=== PATIENT | male | born 1965 | race Caucasian/White ===

== ENCOUNTER 2020-01-28 08:12 | Inpatient (IN) | payer BC ==
[2020-01-28] MEDS ORDERED: ASPIRIN 81 MG PO STA (08:26)
[2020-01-28] MEDS ORDERED: SODIUM CHLORIDE 0.9% 1,000 ML IV STA (08:26)
[2020-01-28] MEDS ORDERED: ATORVASTATIN 80 MG TAB PO STA (08:27)
[2020-01-28] MEDS: NITROGLYCERIN SL TABS 0.4 MG TAB SUBLINGUAL STA ×3 (08:28→08:39)
--- NOTE | 2020-01-28 08:34 | ED ---
General Adult HPI - General Chief complaint: Chest Pain Stated complaint: chest pain Time Seen by Provider: 01/28/20 08:19 Source: patient, RN notes reviewed, old records reviewed Mode of arrival: ambulatory Limitations: no limitations - History of Present Illness Initial comments: This a 54-year-old male who presents emergency department with past medical history significant for smoking. Patient denies any history of diabetes hypertension high cholesterol. Patient denies any family history of heart problems. Patient states this morning he woke up at about 7:00 he started experiencing chest discomfort. Patient states it did radiate to his back. Patient denied any shortness of breath to me. Patient's any nausea or vomiting. Patient any recent history of fever chills or cough. Patient denies any lightheadedness dizziness or near syncopal episode. Patient states the pain is been unchanged since that time. Patient did not take any medication. Patient denies any previous history of any heart problems. Patient denies any previous history of similar. Patient denies any swelling to the legs or calf tenderness. Patient denies any abdominal pain. - Related Data Home Medications Medication Instructions Recorded Confirmed [id number] 2 tab PO Q4HR PRN 01/28/20 01/28/20 [Excedrin] Allergies Allergy/AdvReac Type Severity Reaction Status Date / Time codeine Allergy Nausea & Verified 01/28/20 08:31 Vomiting Review of Systems ROS Statement: Those systems with pertinent positive or pertinent negative responses have been documented in the HPI. ROS Other: All systems not noted in ROS Statement are negative. Past Medical History Past Medical History: No Reported History Past Surgical History: No Surgical Hx Reported Past Psychological History: No Psychological Hx Reported Smoking Status: Current every day smoker Past Alcohol Use History: None Reported Past Drug Use History: None Reported General Exam - General Exam Comments Initial Comments: GENERAL: Patient is well-developed and well-nourished. Patient is nontoxic and well- hydrated and is in mild distress. ENT: Neck is soft and supple. No significant lymphadenopathy is noted. Oropharynx is clear. Moist mucous membranes. Neck has full range of motion without eliciting any pain. EYES: The sclera were anicteric and conjunctiva were pink and moist. Extraocular m ovements were intact and pupils were equal round and reactive to light. Eyelids were unremarkable. PULMONARY: Unlabored respirations. Good breath sounds bilaterally. No audible rales rhonchi or wheezing was noted. CARDIOVASCULAR: There is a regular rate and rhythm without any murmurs gallops or rubs. ABDOMEN: Soft and nontender with normal bowel sounds. SKIN: Skin is clear with no lesions or rashes and otherwise unremarkable. NEUROLOGIC: Patient is alert and oriented x3. Cranial nerves II through XII are grossly intact. Motor and sensory are also intact. Normal speech, volume and content. Symmetrical smile. MUSCULOSKELETAL: Normal extremities with adequate strength and full range of motion. No lower extremity swelling or edema. No calf tenderness. LYMPHATICS: No significant lymphadenopathy is noted PSYCHIATRIC: Normal psychiatric evaluation. Limitations: no limitations Course Vital Signs 01/28/20 01/28/20 08:15 08:26 Temperature 97.8 F Pulse Rate 56 L 65 Respiratory 18 18 Rate Blood Pressure 164/95 156/108 O2 Sat by Pulse 98 Oximetry Medical Decision Making - Medical Decision Making EKG shows normal sinus rhythm at 60 bpm NM interval 144 QRS is 108 QT interval 444 QTC is [address] segment elevation in the inferior leads and significant reciprocal changes in precordial leads V2 through 5. After the first nitroglycerin patient was feeling some relief so second EKG was done shows normal sinus rhythm at 65 bpm NM interval 150 QRS 108 QT interval 440 QTC is 457. Patient's EKG shows ST segment elevation inferior leads as well as reciprocal changes again in leads V2 through the 6. Critical Care Time Critical Care Time: Yes Total Critical Care Time: 35 Disposition Clinical Impression: ST elevation myocardial infarction (STEMI) Disposition: ADMITTED IP TO THIS HOSP Referrals: None,Stated [Primary Care Provider] - 1-2 days Time of Disposition: 08:34
[2020-01-28] MEDS ORDERED: HEPARIN SODIUM,PORCINE 5,000 UNIT/ML 1 ML VIAL IV STA (08:37)
--- NOTE | 2020-01-28 08:45 | XR ---
EXAMINATION TYPE: XR chest 1V portable DATE OF EXAM: 01/28/2020 COMPARISON: NONE HISTORY: Chest pain. TECHNIQUE: Single AP portable frontal upright view of the chest is obtained. FINDINGS: There is chronic parenchymal change without suspicious focal air space opacity, pleural ef fusion, or pneumothorax seen. The cardiac silhouette size is upper limits of normal. The osseous s tructures are intact. Overlying EKG leads noted. IMPRESSION: No acute process.
[2020-01-28 08:54] LABS: Basophils # (A) 0.1 k/uL (0-0.2); Basophils % (A) 1 %; Eosinophils # (A) 0.5 k/uL (0-0.7); Eosinophils % (A) 3 %; HCT 50.7 % (39.0-53.0); HGB 16.5 gm/dL (13.0-17.5); Lymphocytes # (A) 5.5 k/uL (1.0-4.8); Lymphocytes % (A) 40 %; MCH 32.4 pg (25.0-35.0); MCHC 32.5 g/dL (31.0-37.0); MCV 99.7 fL (80.0-100.0); Mean Platelet Volume 7.3; Monocytes # (A) 0.9 k/uL (0-1.0); Monocytes % (A) 7 %; Neutrophils # (A) 6.3 k/uL (1.3-7.7); Neutrophils % (A) 46 %; Platelet Count 296 k/uL (150-450); RBC 5.09 m/uL (4.30-5.90); RDW 13.1 % (11.5-15.5); WBC 13.6 k/uL (3.8-10.6)
[2020-01-28 08:56] LABS: ALT 22 U/L (4-49); AST 34 U/L (17-59); African American GFR (CKD) >90 (>60 ml/min/1.73 sqM); Albumin 4.7 g/dL (3.5-5.0); Alkaline Phosphatase 108 U/L (38-126); Anion Gap 10 mmol/L; Blood Urea Nitrogen 18 mg/dL (9-20); Calcium 9.5 mg/dL (8.4-10.2); Carbon Dioxide 24 mmol/L (22-30); Chloride 105 mmol/L (98-107); Glucose 152 mg/dL (74-99); Non-African American GFR(CKD) >90 (>60 ml/min/1.73 sqM); Potassium 4.3 mmol/L (3.5-5.1); Sodium 139 mmol/L (137-145); Total Bilirubin 0.6 mg/dL (0.2-1.3); Total Protein 7.7 g/dL (6.3-8.2)
[2020-01-28 08:57] LABS: INR 0.9 (<1.2); Partial Thromboplastin Time 22.1 sec (22.0-30.0); Prothrombin Time 9.9 sec (9.0-12.0)
[2020-01-28 09:02] LABS: Reactive Lymphocytes Present
[2020-01-28] MEDS ORDERED: LIDOCAINE 1% INJ 10MG/ML (20 ML MDV) ONE (09:04)
--- NOTE | 2020-01-28 09:26 | P.CRDCN ---
History of Present Illness History of present illness: This is Dr. Bal dictating a consult on this patient The patient was interviewed and examined IMPRESSION / ASSESSMENT: Chest discomfort the study 7:00 this morning and associated with T-wave inversions in the anterior precordial leads Acute coronary syndrome History of smoking 1 episode of chest discomfort for several hours, one week back PLAN: IV heparin antiplatelet therapy statins beta blockers and proceed to cardio catheterization Discussed with Dr. Priest 2-D echo thereafter Maximal medical treatment for COPD thereafter Smoking cessation Lipid panel HPI Patient got this morning with severe discomfort in the chest that went up into the interscapular area and the shoulders. No shortness of breath no dizziness lightheadedness no palpitations He had similar episode about a week back and the pain lasted for several hours ROS: No fever chills or rigors, no cough, phlegm or expectoration, no nausea, vomiting or diarrhea, no hematuria, dysuria, no musculoskeletal complaints, no strokes or seizures, no skin lesions. EXAMINATION: 122/82 mmHg pulse rate in the 60s no respiratory distress No JVD No lower extremity edema Breath sounds are clear no rhonchi no crackles Normal S1 normal S2 no murmurs no gallops no rub REVIEW OF LABS, ECG & MEDICAL DATA White count 13,000 hemoglobin 16.5 and at lites normal First troponin 0.14 to GFR normal Patient denies diabetes type 2, hypertension Family history of CAD Past Medical History Past Medical History: No Reported History Past Surgical History: No Surgical Hx Reported Past Psychological History: No Psychological Hx Reported Smoking Status: Current every day smoker Past Alcohol Use History: None Reported Past Drug Use History: None Reported Medications and Allergies Home Medications Medication Instructions Recorded Confirmed Type [id number] [id number] 2 tab PO Q4HR PRN 01/28/20 01/28/20 History [Excedrin] Allergies Allergy/AdvReac Type Severity Reaction Status Date / Time codeine Allergy Nausea & Verified 01/28/20 08:31 Vomiting Physical Exam Vitals: Vital Signs Temp Pulse Resp BP Pulse Ox 01/28/20 08:55 60 18 122/82 94 L 01/28/20 08:52 59 L 18 122/82 94 L 01/28/20 08:46 63 18 127/85 94 L 01/28/20 08:42 64 18 134/91 94 L 01/28/20 08:35 64 18 129/92 92 L 01/28/20 08:26 65 18 156/108 01/28/20 08:15 97.8 F 56 L 18 164/95 98 Intake and Output 01/27/20 01/28/20 01/28/20 22:59 06:59 14:59 Other: Weight 90.718 kg Results 01/28/20 08:25 01/28/20 08:25 Cardiac Enzymes 01/28/20 01/28/20 Range/Units 08:25 08:25 AST 34 (17-59) U/L Troponin I 0.142 H* (0.000-0.034) ng/mL Coagulation 01/28/20 Range/Units 08:25 PT 9.9 (9.0-12.0) sec APTT 22.1 (22.0-30.0) sec CBC 01/28/20 Range/Units 08:25 WBC 13.6 H (3.8-10.6) k/uL RBC 5.09 (4.30-5.90) m/uL Hgb 16.5 (13.0-17.5) gm/dL Hct 50.7 (39.0-53.0) % Plt Count 296 (150-450) k/uL Comprehensive Metabolic Panel 01/28/20 Range/Units 08:25 Sodium 139 (137-145) mmol/L Potassium 4.3 (3.5-5.1) mmol/L Chloride 105 (98-107) mmol/L Carbon Dioxide 24 (22-30) mmol/L BUN 18 (9-20) mg/dL Creatinine 0.85 (0.66-1.25) mg/dL Glucose 152 H (74-99) mg/dL Calcium 9.5 (8.4-10.2) mg/dL AST 34 (17-59) U/L ALT 22 (4-49) U/L Alkaline Phosphatase 108 (38-126) U/L Total Protein 7.7 (6.3-8.2) g/dL Albumin 4.7 (3.5-5.0) g/dL Intake and Output 01/27/20 01/28/20 01/28/20 22:59 06:59 14:59 Other: Weight 90.718 kg Patient Weight 01/29/20 05:59 Weight 90.718 kg 01/28/20 08:25 01/28/20 08:25
[2020-01-28] MEDS ORDERED: LIDOCAINE 1% INJ 10MG/ML (20 ML MDV) SQ ONE (09:37)
[2020-01-28] MEDS ORDERED: HYDROmorphone 0.5 MG/0.5 ML SYRINGE IVP ONE ×2 (09:37→09:52)
[2020-01-28] MEDS ORDERED: IV FLUID CONTINUATION 1,000 ML IV ONE (09:39)
[2020-01-28] MEDS ORDERED: HEPARIN SODIUM 1,000 UN/ML (10ML VL) ONE (09:44)
[2020-01-28] MEDS ORDERED: TIROFIBAN 12.5MG-250ML NS 250 ML IV ONE (09:47)
[2020-01-28] MEDS ORDERED: TIROFIBAN BOLUS 12.5MG/250 ML BAG IV ONE (09:47)
[2020-01-28] MEDS ORDERED: HEPARIN SODIUM 1,000 UN/ML (10ML VL) IV ONE ×4 (09:47→10:30)
[2020-01-28] MEDS ORDERED: niCARdipine Syringe (1,000 mcg/10 mL) INTRACORON ONE (09:52)
[2020-01-28] MEDS ORDERED: IOPAMIDOL-370 125ML BTL INJ ONE (09:59)
[2020-01-28] MEDS ORDERED: IOPAMIDOL-370 50ML BTL INJ ONE (10:14)
[2020-01-28] MEDS ORDERED: NITROGLYCERIN 1000MCG/10ML SYRINGE INTRACORON ONE (10:27)
[2020-01-28] MEDS ORDERED: CLOPIDOGREL 75 MG TAB PO ONE (10:31)
[2020-01-28] MEDS ORDERED: IOPAMIDOL-370 100ML BTL INJ ONE (10:32)
[2020-01-28] MEDS ORDERED: CLOPIDOGREL 75 MG TAB ONE (10:35)
[2020-01-28] MEDS ORDERED: ZOLPIDEM 5 MG TAB PO PRN (10:42)
[2020-01-28] MEDS ORDERED: NITROGLYCERIN SL TABS 0.4 MG TAB SUBLINGUAL PRN (10:42)
[2020-01-28] MEDS ORDERED: RX INFO: IV CONTRAST WAS GIVEN 1 EACH MISC MISCELLANE PRN (10:42)
[2020-01-28] MEDS ORDERED: ATROPINE SULFATE 0.1 MG/ML 10ML SYRINGE IV PRN (10:42)
[2020-01-28] MEDS ORDERED: TIROFIBAN 12.5MG-250ML NS 250 ML IV SCH (11:00)
[2020-01-28 11:12] LABS: Cholesterol 240 mg/dL (<200); HDL Cholesterol 36 mg/dL (40-60); LDL Cholesterol,Calculated 164 mg/dL (0-99); Triglycerides 201 mg/dL (<150)
[2020-01-28 11:18] LABS: Glucose,Whole Blood 114 mg/dL (75-99)
[2020-01-28] MEDS: SODIUM CHLORIDE 0.9% 1,000 ML IV SCH (11:18)
[2020-01-28] MEDS: MAG HYDROX/AL HYDROX/SIMETH 30 ML CUP PO PRN ×2 (11:22→21:37)
[2020-01-28] MEDS ORDERED: ONDANSETRON 4 MG/2 ML VIAL IVP PRN (12:11)
[2020-01-28] MEDS ORDERED: ACETAMINOPHEN TAB 325 MG TAB PO PRN ×2 (12:11→21:30)
--- NOTE | 2020-01-28 12:19 | P.HPIM ---
History of Present Illness H&P Date: 01/28/20 Chief Complaint: chest pain Patient is a 54-year-old male with a history of tobacco abuse who presented to the emergency department for complaints of chest pain. In the ER EKG was obtained which revealed ST segment elevation in leads 23 and aVF as well as reciprocal depression in anterior lateral leads. Code STEMI was activated. He was taken to the laborer operator and had a drug-eluting stent placed to the circumflex and RCA. He was started on aspirin, Plavix, Lopressor, Cozaar, and Lipitor. He was admitted to the ICU for close monitoring. Initial troponin 0.142, TC 201, LDL 164. Patient seen and examined at bedside. He will morning with pain between his shoulder blades and over the next hour moved his anterior chest. It was associated with cold sweats Some nausea. No numbness or tingling down his arm up to his jaw, no shortness of breath, no lightheadedness or dizziness, no palpitations. He has not recently started or stopped any medications. He does take zinc, B12, and potassium intermittently at home. He does not follow with family doctor in a regular basis. He has not had any recent cough, cold, fever, flu. He works construction. His grandfather had a heart attack in his 50s. Review of Systems Pertinent positives and negatives as discussed in HPI, a complete review of systems was performed and all other systems are negative. Past Medical History Additional Past Medical History / Comment(s): Nephrolithiasis Additional Past Surgical History / Comment(s): Tooth extraction Past Psychological History: No Psychological Hx Reported Smoking Status: Current every day smoker (One pack per day for 30 years) Past Alcohol Use History: None Reported Past Drug Use History: None Reported Additional History: Lives with his and works in construction. - Past Family History grandfather Family Medical History: Coronary Artery Disease (CAD), Myocardial Infarction ([place]) Medications and Allergies Home Medications Medication Instructions Recorded Confirmed Type [id number] 2 tab PO Q4HR PRN 01/28/20 01/28/20 History [Excedrin] Allergies Allergy/AdvReac Type Severity Reaction Status Date / Time codeine Allergy Nausea & Verified 01/28/20 08:31 Vomiting Physical Exam Osteopathic Statement: *. No significant issues noted on an osteopathic structural exam other than those noted in the History and Physical/Consult. Vitals: Vital Signs Temp Pulse Resp BP Pulse Ox 01/28/20 08:55 60 18 122/82 94 L 01/28/20 08:52 59 L 18 122/82 94 L 01/28/20 08:46 63 18 127/85 94 L 01/28/20 08:42 64 18 134/91 94 L 01/28/20 08:35 64 18 129/92 92 L 01/28/20 08:26 65 18 156/108 01/28/20 08:15 97.8 F 56 L 18 164/95 98 Intake and Output 01/27/20 01/28/20 01/28/20 22:59 06:59 14:59 Intake Total 686 Balance 686 Intake: IV 686 Other: Weight 90.718 kg Results CBC & Chem 7: 01/28/20 08:25 01/28/20 08:25 Labs: Abnormal Lab Results - Last 24 Hours (Table) 01/28/20 01/28/20 01/28/20 Range/Units 08:25 08:25 08:25 WBC 13.6 H (3.8-10.6) k/uL Lymphocytes # 5.5 H (1.0-4.8) k/uL Glucose 152 H (74-99) mg/dL POC Glucose (mg/dL) (75-99) mg/dL Troponin I 0.142 H* (0.000-0.034) ng/mL Triglycerides (<150) mg/dL Cholesterol (<200) mg/dL LDL Cholesterol, Calc (0-99) mg/dL HDL Cholesterol (40-60) mg/dL 01/28/20 01/28/20 Range/Units 08:25 11:17 WBC (3.8-10.6) k/uL Lymphocytes # (1.0-4.8) k/uL Glucose (74-99) mg/dL POC Glucose (mg/dL) 114 H (75-99) mg/dL Troponin I (0.000-0.034) ng/mL Triglycerides 201 H (<150) mg/dL Cholesterol 240 H (<200) mg/dL LDL Cholesterol, Calc 164 H (0-99) mg/dL HDL Cholesterol 36 L (40-60) mg/dL Thrombosis Risk Factor Assmnt - DVT/VTE Prophylaxis DVT/VTE Prophylaxis: Pharmacologic Prophylaxis ordered Assessment and Plan Assessment: ST segment elevated myocardial infarction -Status post stent to circumflex and RCA -Aspirin, Plavix, Lipitor, metoprolol, Cozaar -Await echo -Telemetry -Cardiology recommendations Dyslipidemia -Statin Leukocytosis -Suspect reactive -Chest x-ray negative -No additional signs or symptoms of infection Tobacco abuse -Cessation -Nicotine replacement The patient is admitted with an anticipated greater than 2 midnight stay for evaluation of an ST segment elevated myocardial infarction. Surrogate decision-maker: DVT prophylaxis: Heparin Discussed with: nursing, ED physician Anticipated discharge date: 2-[address]: home A total of 50 minutes was spent on the care of this complex patient more than 50% of the time was spent in counseling and care coordination.
--- NOTE | 2020-01-28 13:40 | CC ---
CARDIAC CATHETERIZATION REPORT CARDIAC CATHETERIZATION AND PTCA REPORT: DATE OF SERVICE: 01/28/2020. PROCEDURE PERFORMED: 1. Left heart catheterization and coronary angiography. 2. PTCA and stenting of the mid circumflex coronary artery in the setting of an acute non ST elevation [place] as the culprit lesion with a drug-eluting stent. 3. PTCA and stenting of a calcified mid RCA with a drug-eluting stent. PERFORMED BY: Dr. Alicja Priest. SEDATION: Moderate conscious sedation time was 64 minutes. Patient was administered Versed. Oxygen saturation, hemodynamics and EKG were monitored closely. CLINICAL INFORMATION: Mr. Juan Aceves is a 54-year-old gentleman, a smoker with family history of CAD, came into the hospital with chest pain, was seen and evaluated by Dr. Bal who advised coronary angiography given his presentation with chest pain and precordial ST-segment depression suggestive of non-ST elevation [place] with a troponin of 0.14. I discussed with the patient the rationale for cardiac cath and he was agreeable and I proceeded with it. PROCEDURE NOTE: Under strict aseptic precautions and local anesthesia, a 6-Afghan introducer was placed in the right femoral artery. I started out with a JL4 guide catheter and performed intervention of mid circumflex lesion which was laden with thrombus and had a 99% stenosis with sluggish flow. After the intervention of this vessel, I performed selective coronary angiography of the right coronary artery. The diagnostic catheter noted that the mid RCA had an 80-90 percent heavily calcified eccentric lesion which was not the culprit lesion, but was quite significant. I performed intervention of this vessel as well with a drug-eluting stent. Following this, I checked LV pressures but did not perform LV gram. The catheter and sheath were taken out and an Angio-Seal device used to secure hemostasis and he was sent to the room in a stable condition. Results were discussed with the patient and . CARDIAC CATHETERIZATION FINDINGS: Left ventricular end-diastolic pressure was about 20 mmHg without any gradient across the aortic valve. CORONARY ANGIOGRAPHY FINDINGS: RIGHT CORONARY ARTERY: This is a technically a dominant vessel. The entire vessel is heavily calcified. The proximal segment has multiple lumpy bumpy areas of anywhere from 30-40 percent. Mid area has 80-90 percent calcified eccentric lesion after which the caliber improves and the vessel bifurcates into PDA and PLV. RCA is a heavily calcified vessel, diffusely diseased with the midportion of 80-90 percent, eccentric and calcified. LEFT MAIN CORONARY ARTERY: This is a short, patent disease-free vessel that immediately bifurcates into LAD and circumflex. LEFT ANTERIOR DESCENDING CORONARY ARTERY: This is a good caliber vessel, extends along the anterior wall and gives off septal and diagonal branches. The vessel has mild to moderate calcification. In the midportion, there are an areas of disease of anywhere from 30-45 percent with the septal and diagonal branches coming off from the diseased area. The vessel runs all the way to the apex supplying a sizable amount of myocardium. There is no critical disease, but there is diffuse 30-40 percent narrowing throughout the LAD. LEFT POSTERIOR CIRCUMFLEX CORONARY ARTERY: Technically, a nondominant vessel of good caliber and distribution, gives off a 2 small obtuse marginal. Then there is a large obtuse marginal with ostial lesion of 50% to 55%. After this lesion, there is a 99% stenosis with sluggish flow filled with thrombus and beyond that, it bifurcates into PDA and PLV branches. This is probably a codominant vessel that has a 99% mid lesion with thrombus and the culprit lesion. Left ventriculogram was not performed. FINAL IMPRESSION: This patient has probably a codominant system 80-90 percent mid RCA lesion, heavily calcified with diffuse disease in the proximal LAD and distal branches are free of significant disease. Left main is free of significant disease. LAD has 30-40 percent diffuse areas of narrowing with calcification. Circumflex has a 99% mid lesion with thrombus. Culprit lesion with sluggish flow beyond. This is probably a codominant circumflex. LV end-diastolic pressures are elevated without gradient. RECOMMENDATIONS: I initially performed PTCA and stenting of circumflex to begin with and then performed PTCA and intervention of the RCA. PTCA PROCEDURE DETAILS: I used a JL4 guide catheter to cannulate the left coronary artery and a run-through wire to cross the lesion in the circumflex. Without predilatation, I performed a primary stenting with a 3.5 caliber 12 mm Xience stent at 12 atmospheres. Patient had chest pain and more prominent inferior precordial ST depression. Excellent angiographic result without complication was achieved. I gave some intracoronary nicardipine. The results were excellent. I then turned my attention to the RCA, which revealed 80% -90% mid lesion. For this vessel, I used a multipurpose MP1 guide catheter to cannulate the right coronary artery and a run-through wire to cross the lesion. The same run-through wire was used. I pre-dilated the lesion with 3.0 caliber 15 mm NC Emerge balloon. I had difficulty advancing the stent and therefore I used a nancy wire. I used a short whisper wire. Over the whisper wire, advanced a 3.25 caliber 15 mm long Xience stent. This was deployed at 13 atmospheres. Patient had chest pain and inferior ST elevation. Excellent angiographic result without complication was achieved. The sheath was taken out and Angio-Seal device used to secure hemostasis. Patient received initially heparin in the ER. Subsequently received additional 6000 units of heparin and ACT was about 228. He also received Aggrastat bolus and infusion as per protocol. He received 600 mg of Plavix orally. He was sent to the room in a stable condition. Excellent angiographic result was achieved of the mid circumflex and mid RCA. Both drug-eluting stents. The patient was hemodynamically stable and EKG improved remarkably. Results were discussed with the patient and family. Patient still has an obtuse marginal lesion which is fairly significant, but not critical and this can be addressed at a later date and this lesion is just above the total occlusion of circumflex. MMODL / IJN: [id number] /
--- NOTE | 2020-01-28 14:00 | ECHOF ---
Referral Reason:Acute NC LCX culprit MEASUREMENTS -------- HEIGHT: 177.8 cm WEIGHT: 136.1 kg BP: 122/82 IVSd: 1.1 cm (0.6 - 1.1) LVIDd: 4.4 cm (3.9 - 5.3) LVPWd: 1.6 cm (0.6 - 1.1) IVSs: 1.5 cm LVIDs: 3.3 cm LVPWs: 2.0 cm RVIDd: 2.3 cm (< 3.3) LAESV Index (A-L): 30.31 ml/m Ao Diam: 2.7 cm (2.0 - 3.7) AV Cusp: 1.7 cm (1.5 - 2.6) EPSS: 0.7 cm MV E Marek: 0.87 m/s MV DecT: 249 ms MV A Marek: 0.57 m/s MV E/A Ratio: 1.53 RAP: 5.00 mmHg RVSP: 35.42 mmHg MV EF SLOPE: 164.45 mm/s (70 - 150) MV EXCURSION: 27.03 mm (> 18.000) FINDINGS -------- Sinus rhythm. Patient is post cardiac catheterization and cannot be in left lateral position. The left ventricular size is normal. There is mild concentric left ventricular hypertrophy. Overa ll left ventricular systolic function is low-normal with, an EF between 50 - 55 %. Lateral hypokine sis Inferiorlateral Hypokinesis The right ventricle is normal in size. LA is midly dilated 29-33ml/m2. The right atrial size is normal. 5.0mg of Lumason was utilized for enhancement of images Interatrial and interventricular septum intact. The aortic valve is trileaflet and appears structurally normal. There is no evidence of aortic regu rgitation. There is no evidence of aortic stenosis. Mild mitral regurgitation is present. Mild tricuspid regurgitation present. There is mild pulmonary hypertension. The right ventricular systolic pressure, as measured by Doppler, is 35.42mmHg. There is no pulmonic regurgitation present. The aortic root size is normal. IVC Not well visulized. There is no pericardial effusion. CONCLUSIONS -------- 1. The left ventricular size is normal. 2. There is mild concentric left ventricular hypertrophy. 3. Overall left ventricular systolic function is low-normal with, an EF between 50 - 55 %. 4. Lateral hypokinesis 5. Inferiorlateral Hypokinesis 6. LA is midly dilated 29-33ml/m2. 7. Mild mitral regurgitation is present. 8. Mild tricuspid regurgitation present. 9. There is mild pulmonary hypertension. 10. The right ventricular systolic pressure, as measured by Doppler, is 35.42mmHg. [employer] MANAGER: Cortney Moody RDCS
[2020-01-28] MEDS: PANTOPRAZOLE 40 MG TABLET PO SCH (15:01)
[2020-01-28] MEDS: HEPARIN SODIUM,PORCINE 5,000 UNIT/ML 1 ML VIAL SQ SCH (19:51)
[2020-01-28] MEDS: ATORVASTATIN 80 MG TAB PO SCH (20:40)
[2020-01-28] MEDS: METOPROLOL TARTRATE 12.5 MG TAB PO SCH (20:40)
[2020-01-28] MEDS: LOSARTAN 50 MG TAB PO SCH (20:42)
[2020-01-28] MEDS: ACETAMINOPHEN TAB 325 MG TAB PO PRN (21:15)
[2020-01-29] MEDS: HEPARIN SODIUM,PORCINE 5,000 UNIT/ML 1 ML VIAL SQ SCH ×4 (00:03→23:32)
[2020-01-29] MEDS: SODIUM CHLORIDE 0.9% 1,000 ML IV SCH (00:04)
[2020-01-29 04:09] LABS: Basophils # (A) 0.1 k/uL (0-0.2); Basophils % (A) 0 %; Eosinophils # (A) 0.2 k/uL (0-0.7); Eosinophils % (A) 1 %; HCT 47.4 % (39.0-53.0); HGB 15.3 gm/dL (13.0-17.5); Lymphocytes # (A) 2.7 k/uL (1.0-4.8); Lymphocytes % (A) 21 %; MCH 32.1 pg (25.0-35.0); MCHC 32.2 g/dL (31.0-37.0); MCV 99.8 fL (80.0-100.0); Mean Platelet Volume 7.2; Monocytes # (A) 0.8 k/uL (0-1.0); Monocytes % (A) 6 %; Neutrophils # (A) 8.8 k/uL (1.3-7.7); Neutrophils % (A) 70 %; Platelet Count 224 k/uL (150-450); RBC 4.75 m/uL (4.30-5.90); RDW 13.1 % (11.5-15.5); WBC 12.6 k/uL (3.8-10.6)
[2020-01-29 04:28] LABS: African American GFR (CKD) >90 (>60 ml/min/1.73 sqM); Anion Gap 5 mmol/L; Blood Urea Nitrogen 12 mg/dL (9-20); Calcium 9.4 mg/dL (8.4-10.2); Carbon Dioxide 27 mmol/L (22-30); Chloride 104 mmol/L (98-107); Glucose 117 mg/dL (74-99); Non-African American GFR(CKD) >90 (>60 ml/min/1.73 sqM); Sodium 136 mmol/L (137-145)
[2020-01-29 04:47] LABS: Potassium 5.1 mmol/L (3.5-5.1)
[2020-01-29] MEDS: ACETAMINOPHEN TAB 325 MG TAB PO PRN ×3 (04:54→23:35)
[2020-01-29] MEDS: PANTOPRAZOLE 40 MG TABLET PO SCH (08:44)
[2020-01-29] MEDS: CLOPIDOGREL 75 MG TAB PO SCH (08:45)
[2020-01-29] MEDS: ASPIRIN 81 MG PO SCH (08:45)
[2020-01-29] MEDS: METOPROLOL TARTRATE 12.5 MG TAB PO SCH (08:45)
--- NOTE | 2020-01-29 11:12 | P.PN ---
Subjective Progress Note Date: 01/29/20 Principal diagnosis: chest pain Patient is a 54-year-old male with a history of tobacco abuse who presented to the emergency department for complaints of chest pain. In the ER EKG was obtained which revealed ST segment elevation in leads 23 and aVF as well as reciprocal depression in anterior lateral leads. Code STEMI was activated. He was taken to the propagator laborer and had a drug-eluting stent placed to the circumflex and RCA. He was started on aspirin, Plavix, Lopressor, Cozaar, and Lipitor. He was admitted to the ICU for close monitoring. Initial troponin 0.142, TC 201, LDL 164. Echocardiogram was performed which showed an ejection fraction of 50- 55% with some hypokinesis. Overnight on 01/27 he did not have any noted arrhythmias. Patient seen and examined at bedside. He denies any chest pain, was having some heartburn yesterday which is since resolved, no shortness of breath, no nausea or vomiting. General: non toxic, no distress, appears at stated age Derm: Right groin with dressing in place, no hematoma or pulsatile masses noted, warm, dry Head: atraumatic, normocephalic, symmetric Eyes: EOMI, no lid lag, anicteric sclera Mouth: no lip lesion, mucus membranes moist Cardiovascular: S1S2 reg, no murmur, positive posterior tibial pulse bilateral, Lungs: Decreased breath sounds bilateral bilateral, no rhonchi, no rales , no accessory muscle use Abdominal: soft, nontender to palpation, no guarding, no appreciable organomegaly Ext: no gross muscle atrophy, no edema, no contractures Neuro: CN II-XI grossly intact, no focal neuro deficits Psych: Alert, oriented, appropriate affect ST segment elevated myocardial infarction -Status post stent to circumflex and RCA -Aspirin, Plavix, Lipitor, metoprolol, Cozaar -Echo with preserved ejection fraction -Telemetry -Cardiology recommendations Dyslipidemia -Statin Leukocytosis, improving -Suspect reactive -Chest x-ray negative -No additional signs or symptoms of infection Tobacco abuse -Cessation -Nicotine replacement DVT prophylaxis: Heparin Discussed with: nursing, patient Anticipated discharge date: In a.m. Anticipated discharge place: home A total of 25 minutes was spent on the care of this complex patient more than 50% of the time was spent in counseling and care coordination. Objective - Vital Signs Vital signs: Vital Signs Temp 98.2 F 01/29/20 08:00 Pulse 71 01/29/20 09:00 Resp 17 01/29/20 09:00 BP 120/84 01/29/20 09:00 Pulse Ox 95 01/29/20 08:00 Intake & Output 01/28/20 01/29/20 01/29/20 19:59 06:59 18:59 Intake Total 585 Output Total 900 Balance -315 Weight Intake: IV Intake, IV Titration 225 Amount Sodium Chloride 0.9% 1, 225 000 ml @ 75 mls/hr IV . [id number] [facility] Rx#:[id number] Oral 360 Output: Urine 900 Other: Voiding Method Urinal # Voids 1 - Labs CBC & Chem 7: 01/29/20 03:55 01/29/20 03:55 Labs: Abnormal Lab Results - Last 24 Hours (Table) 01/28/20 01/28/20 01/29/20 Range/Units 14:22 21:44 03:55 WBC 12.6 H (3.8-10.6) k/uL Neutrophils # 8.8 H (1.3-7.7) k/uL Sodium (137-145) mmol/L Glucose (74-99) mg/dL Troponin I 94.200 H* 55.800 H* (0.000-0.034) ng/mL 01/29/20 01/29/20 Range/Units 03:55 03:55 WBC (3.8-10.6) k/uL Neutrophils # (1.3-7.7) k/uL Sodium 136 L (137-145) mmol/L Glucose 117 H (74-99) mg/dL Troponin I 32.900 H* (0.000-0.034) ng/mL
--- NOTE | 2020-01-29 11:54 | P.PN ---
Subjective Patient is doing well from a cardiac standpoint. He denies any chest discomfort dizziness lightheadedness or palpitations. He was admitted with chest discomfort yesterday, true posterior infarct, ST elevation. He had an occluded left circumflex vessel which was stented and he also had an 80% stenosis in the RCA which was also stented successfully. Stenting to the mid circumflex which was the culprit lesion Stenting to the calcified mid RCA with a drug-eluting stent History of smoking Blood pressure 120/84 mmHg pulse rate in the 60s and 70s afebrile Breath sounds are clear no rhonchi no crackles no murmurs no rub no gallop No JVD or bruits Abdomen is soft Extremities warm no edema Impression posterior wall [place] status post stenting to the left circumflex Two-vessel disease calcified lesion in the RCA which was also stented in addition to the culprit vessel 2-D echo shows inferior lateral and lateral wall hypokinesis mild MR and mild TR overall ejection fraction recently well-preserved 50-55% Plan Continue aspirin Plavix atorvastatin losartan and metoprolol Increase metoprolol to 25 mg twice daily Objective - Vital Signs Vital signs: Vital Signs Temp 98.2 F 01/29/20 08:00 Pulse 59 L 01/29/20 11:00 Resp 12 01/29/20 11:00 BP 112/78 01/29/20 11:00 Pulse Ox 95 01/29/20 08:00 Intake & Output 01/28/20 01/29/20 01/29/20 19:59 06:59 18:59 Intake Total 735 Output Total 900 Balance -165 Weight Intake: IV Intake, IV Titration 375 Amount Sodium Chloride 0.9% 1, 375 000 ml @ 75 mls/hr IV . [id number] [facility] Rx#:[id number] Oral 360 Output: Urine 900 Other: Voiding Method Urinal # Voids 1 - Labs CBC & Chem 7: 01/29/20 03:55 01/29/20 03:55 Labs: Abnormal Lab Results - Last 24 Hours (Table) 01/28/20 01/28/20 01/29/20 Range/Units 14:22 21:44 03:55 WBC 12.6 H (3.8-10.6) k/uL Neutrophils # 8.8 H (1.3-7.7) k/uL Sodium (137-145) mmol/L Glucose (74-99) mg/dL Troponin I 94.200 H* 55.800 H* (0.000-0.034) ng/mL 01/29/20 01/29/20 Range/Units 03:55 03:55 WBC (3.8-10.6) k/uL Neutrophils # (1.3-7.7) k/uL Sodium 136 L (137-145) mmol/L Glucose 117 H (74-99) mg/dL Troponin I 32.900 H* (0.000-0.034) ng/mL
[2020-01-29 13:05] VITALS: BMI 30.7
[2020-01-29] MEDS: METOPROLOL TARTRATE 25 MG TAB PO SCH (20:01)
[2020-01-29] MEDS: ATORVASTATIN 80 MG TAB PO SCH (20:02)
[2020-01-29] MEDS: LOSARTAN 50 MG TAB PO SCH (20:02)
[2020-01-30 04:50] LABS: African American GFR (CKD) >90 (>60 ml/min/1.73 sqM); Anion Gap 6 mmol/L; Blood Urea Nitrogen 16 mg/dL (9-20); Calcium 9.4 mg/dL (8.4-10.2); Carbon Dioxide 27 mmol/L (22-30); Chloride 104 mmol/L (98-107); Glucose 107 mg/dL (74-99); Magnesium 2.3 mg/dL (1.6-2.3); Non-African American GFR(CKD) >90 (>60 ml/min/1.73 sqM); Potassium 4.7 mmol/L (3.5-5.1); Sodium 137 mmol/L (137-145)
[2020-01-30] MEDS ORDERED: IPRATROPIUM-ALBUTEROL 3 ML NEB ONE (07:08)
[2020-01-30] MEDS: PANTOPRAZOLE 40 MG TABLET PO SCH (07:10)
[2020-01-30] MEDS: METOPROLOL TARTRATE 25 MG TAB PO SCH ×2 (08:53→20:47)
[2020-01-30] MEDS: ASPIRIN 81 MG PO SCH (08:53)
[2020-01-30] MEDS: CLOPIDOGREL 75 MG TAB PO SCH (08:53)
[2020-01-30] MEDS: HEPARIN SODIUM,PORCINE 5,000 UNIT/ML 1 ML VIAL SQ SCH ×2 (08:53→16:37)
--- NOTE | 2020-01-30 10:14 | P.PN ---
Subjective Progress Note Date: 01/30/20 Patient is doing fairly well today. He denies any chest pain or palpitation. No acute events overnight reported to me by nursing staff. Objective - Vital Signs Vital signs: Vital Signs Temp 98.4 F 01/30/20 08:00 Pulse 64 01/30/20 09:00 Resp 8 L 01/30/20 09:00 BP 104/63 01/30/20 08:00 Pulse Ox 95 01/30/20 08:00 Intake & Output 01/29/20 01/30/20 01/30/20 18:59 06:59 18:59 Intake Total 1595 440 360 Output Total 1900 0 0 Balance -305 440 360 Weight 97 kg 95 kg Intake: Intake, IV Titration 375 Amount Sodium Chloride 0.9% 1, 375 000 ml @ 75 mls/hr IV . [id number] [facility] Rx#:[id number] Oral 1220 440 360 Output: Urine 1900 0 0 Other: Voiding Method Urinal Toilet Toilet # Voids 1 1 1 - Exam General: The patient is awake and alert, in no distress Eye: there is normal conjunctiva bilaterally. Neck: The neck is supple, there is no JVD. Cardiovascular: Normal S1-S2, no S3-S4, no murmurs. Respiratory: Lungs clear to auscultation bilaterally Gastrointestinal: Abdomen is soft, nontender Musculoskeletal: There is no pedal edema. Neurological:. Speech is normal. Skin: Skin is warm and dry - Labs CBC & Chem 7: 01/29/20 03:55 01/30/20 03:38 Labs: Abnormal Lab Results - Last 24 Hours (Table) 01/30/20 Range/Units 03:38 Glucose 107 H (74-99) mg/dL Assessment and Plan Assessment: Patient is a 54-year-old male with a history of tobacco abuse who presented to the emergency department for complaints of chest pain. In the ER EKG was obtained which revealed ST segment elevation in leads 23 and aVF as well as reciprocal depression in anterior lateral leads. Code STEMI was activated. He was taken to the engineering lab technician and had a drug-eluting stent placed to the circumflex and RCA. He was started on aspirin, Plavix, Lopressor, Cozaar, and Lipitor. He was admitted to the ICU for close monitoring. Echocardiogram showed an ejection fraction of 50-55% with some hypokinesis. ST segment elevated myocardial infarction -Status post stent to circumflex and RCA -Aspirin, Plavix, Lipitor, metoprolol, Cozaar -Echo with preserved ejection fraction -Telemetry -Cardiology recommendations Dyslipidemia -Statin Leukocytosis, improving -Suspect reactive -Chest x-ray negative -No additional signs or symptoms of infection Tobacco abuse -Cessation -Nicotine replacement Continue telemetry monitoring. Discharge planning by cardiology tomorrow.
--- NOTE | 2020-01-30 11:20 | PN ---
PROGRESS NOTE Juan is a 54-year-old gentleman who is admitted to the hospital with acute posterior wall myocardial infarction and underwent emergent cardiac catheterization and angioplasty of [place] circumflex coronary artery. He also had angioplasty of the right coronary artery. This morning patient is doing well and is free of symptoms. Denies chest pain or difficulty in breathing. On exam heart rate is 64 beats per minute, blood pressure is 104/63, respiratory rate is 18. Chest exam reveals good air entry bilaterally. Heart exam reveals first and second heart sounds. No gallop. Abdomen is soft. Examination of the extremities did not reveal any edema. Peripheral pulses are felt. Labs show that the troponin was 94, it is 32. An echocardiogram showed an ejection fraction of 50% with inferolateral hypokinesis. ASSESSMENT: Acute inferoposterior wall myocardial infarction, status post catheterization and angioplasty of circumflex coronary artery and right coronary artery. Patient is doing well. He will be discharged home tomorrow and outpatient followup arranged with Dr. Bal. MMCHRISL / SABRINAN: [id number] /
[2020-01-30] MEDS: LOSARTAN 50 MG TAB PO SCH (20:47)
[2020-01-30] MEDS: ATORVASTATIN 80 MG TAB PO SCH (20:47)
[2020-01-31] MEDS: HEPARIN SODIUM,PORCINE 5,000 UNIT/ML 1 ML VIAL SQ SCH ×2 (00:08→09:51)
[2020-01-31 04:01] VITALS: RESP 17
[2020-01-31] MEDS: PANTOPRAZOLE 40 MG TABLET PO SCH (06:49)
[2020-01-31 08:22] LABS: Basophils # (A) 0.1 k/uL (0-0.2); Basophils % (A) 1 %; Eosinophils # (A) 0.3 k/uL (0-0.7); Eosinophils % (A) 3 %; HGB 15.6 gm/dL (13.0-17.5); Lymphocytes # (A) 3.1 k/uL (1.0-4.8); Lymphocytes % (A) 29 %; MCH 32.5 pg (25.0-35.0); MCHC 32.5 g/dL (31.0-37.0); MCV 99.8 fL (80.0-100.0); Mean Platelet Volume 7.2; Monocytes # (A) 0.8 k/uL (0-1.0); Monocytes % (A) 8 %; Neutrophils # (A) 6.2 k/uL (1.3-7.7); Neutrophils % (A) 58 %; Platelet Count 247 k/uL (150-450); RBC 4.81 m/uL (4.30-5.90); WBC 10.7 k/uL (3.8-10.6)
[2020-01-31 08:41] LABS: African American GFR (CKD) >90 (>60 ml/min/1.73 sqM); Anion Gap 6 mmol/L; Blood Urea Nitrogen 21 mg/dL (9-20); Calcium 9.6 mg/dL (8.4-10.2); Carbon Dioxide 28 mmol/L (22-30); Chloride 105 mmol/L (98-107); Glucose 85 mg/dL (74-99); Magnesium 2.1 mg/dL (1.6-2.3); Non-African American GFR(CKD) >90 (>60 ml/min/1.73 sqM); Potassium 4.7 mmol/L (3.5-5.1); Sodium 139 mmol/L (137-145)
[2020-01-31] MEDS: CLOPIDOGREL 75 MG TAB PO SCH (09:52)
[2020-01-31] MEDS: METOPROLOL TARTRATE 25 MG TAB PO SCH (09:52)
[2020-01-31] MEDS: ASPIRIN 81 MG PO SCH (09:52)
--- NOTE | 2020-01-31 09:55 | P.PN ---
Subjective Progress Note Date: 01/31/20 this is a 54-year-old gentleman who presented to the hospital with an acute inferior ST elevation myocardial infarction. He was taken to the cardiac catheterization lab where he underwent angioplasty and stentingof the circumflex artery as well as the mid RCA.echocardiogram with Doppler study was performed which revealed a normal left ventricular systolic function with some inferior lateral hypokinesia noted. Patient was seen and examined this morning, denies any chest discomfort, breathing is stable. Blood pressure 115/70 with a heart rate of 70, 98% on room air. White blood cell count 10.7, hemoglobin 15.6, platelet count 247. Sodium 139, potassium 4.7, BUN 21, creatinine 0.8. Objective - Vital Signs Vital signs: Vital Signs Temp 97.9 F 01/31/20 03:00 Pulse 70 01/31/20 03:00 Resp 17 01/31/20 03:00 BP 115/70 01/31/20 03:00 Pulse Ox 98 01/31/20 03:00 Intake & Output 01/30/20 01/31/20 01/31/20 18:59 06:59 18:59 Intake Total 960 960 Output Total 0 Balance 960 960 Weight 93 kg Intake: Oral 960 960 Output: Urine 0 Other: Voiding Method Toilet Toilet # Voids 1 1 # Bowel Movements 1 - Exam Assessment and plan #[address] elevation myocardial infarction, status post angioplasty and stenting of the circumflex and mid RCA #2 hyperlipidemia #3 nicotine dependence #4 family history of premature coronary artery disease Plan Cardiology's perspective, patient may be able to be discharged home today. We'll make him a follow-up appointment to see Dr. Bal in the office post discharge. Discharge medications include aspirin 81 mg daily, Lipitor 80 mg daily, Plavix 75 mg daily, losartan 50 mg daily, and metoprolol 25 mg one tablet by mouth twice a day. Patient again has been educated regarding the importance of nicotine cessation. DNP note has been reviewed, I agree with a documented findings and plan of care. Patient was seen and examined. - Labs CBC & Chem 7: 01/31/20 07:44 01/31/20 07:44 Labs: Abnormal Lab Results - Last 24 Hours (Table) 01/31/20 01/31/20 Range/Units 07:44 07:44 WBC 10.7 H (3.8-10.6) k/uL BUN 21 H (9-20) mg/dL
--- NOTE | 2020-01-31 10:11 | P.DS ---
Providers Date of admission: 01/28/20 08:47 Expected date of discharge: 01/31/20 Attending physician: Alejandrina Cobian, DO Consults: 01/28/20 08:26 Consult Physician Stat Consulting Provider: Blaze Amaya Consult Reason/Comments: STEMI ACTIVATION COMPLETE Do you want consulting provider notified?: Yes 01/28/20 10:42 Consult Physician Routine Consulting Provider: Blaze Amaya Consult Reason/Comments: Post Interventional patient Do you want consulting provider notified?: Already Contacted Primary care physician: Stated None Hospital Course: Patient is a 54-year-old male with a history of tobacco abuse who presented to the emergency department for complaints of chest pain. In the ER EKG was obtained which revealed ST segment elevation in leads 23 and aVF as well as reciprocal depression in anterior lateral leads. Code STEMI was activated. He was taken to the woven label designer and had a drug-eluting stent placed to the circumflex and RCA. He was started on aspirin, Plavix, Lopressor, Cozaar, and Lipitor. He was admitted to the ICU for close monitoring. Echocardiogram showed an ejection fraction of 50-55% with some hypokinesis. ST segment elevated myocardial infarction -Status post stent to circumflex and RCA -Aspirin, Plavix, Lipitor, metoprolol, Cozaar -Echo with preserved ejection fraction -Cardiology recommendations Dyslipidemia -Statin Tobacco abuse -Cessation Patient will be discharged home in a stable condition. For further details about this hospitalization please refer to the electronic chart. Time spent on discharge > 30 minutes including counseling and coordination of Patient Condition at Discharge: Fair Plan - Discharge Summary Discharge Rx Participant: Yes New Discharge Prescriptions: New Aspirin 81 mg PO DAILY #30 chew Losartan [Cozaar] 50 mg PO HS #30 tab Atorvastatin [Lipitor] 80 mg PO HS #30 tab Metoprolol Tartrate [Lopressor] 25 mg PO BID #60 tab Nitroglycerin Sl Tabs [Nitrostat] 0.4 mg SUBLINGUAL Q5M PRN #6 tab PRN Reason: Chest Pain Clopidogrel [Plavix] 75 mg PO DAILY #30 tab Discontinued [id number] [Excedrin] 2 tab PO Q4HR PRN PRN Reason: Migraine Headache Discharge Medication List Aspirin 81 mg PO DAILY #30 chew 01/31/20 [Rx] Atorvastatin [Lipitor] 80 mg PO HS #30 tab 01/31/20 [Rx] Clopidogrel [Plavix] 75 mg PO DAILY #30 tab 01/31/20 [Rx] Losartan [Cozaar] 50 mg PO HS #30 tab 01/31/20 [Rx] Metoprolol Tartrate [Lopressor] 25 mg PO BID #60 tab 01/31/20 [Rx] Nitroglycerin Sl Tabs [Nitrostat] 0.4 mg SUBLINGUAL Q5M PRN #6 tab 01/31/20 [Rx] Follow up Appointment(s)/Referral(s): Paulo Bal MD [STAFF PHYSICIAN] - 1 Week None,Stated [Primary Care Provider] - 1-2 days Patient Instructions/Handouts: Heart Attack (DC), Left Heart Catheterization (DC), Heart Healthy Diet (DC), Hyperlipidemia (DC), Angio-Seal (DC) Activity/Diet/Wound Care/Special Instructions: CARDIAC CATH Support your puncture site by applying firm, steady pressure whenever you cough, laugh, sneeze or bear down to have a bowel movement (2-day restriction). Watch for any excessive bruising, active bleeding, a firm knot forming under your skin, extreme tenderness and signs of infection (redness, swelling, fever). Shower daily, do not soak puncture in a tub bath, jacuzzi, pool, bond etc. for 1 week. This is to prevent risk of infection. Drink plenty of fluids the day of and day after your procedure to flush contrast dye out of your kidneys. Take all medications as directed. Never stop any new medication without your physicians OK. No driving for 2 days after procedure. 10- pound weight lifting restriction for 1 week. Low sodium/low fat diet. Activity limited until follow up appointment with your cone trucker. In case of any problems, please call [facility] [place] @ [phone] Discharge Disposition: HOME SELF-CARE
[2020-01-31 10:44] VITALS: BP 104/63; PULSE 63; TEMP 98.3
== END 2020-01-31 12:18 | disposition home or self-care (01) | DRG 247 ==
LOC: EC 08:12 → 2SICU 08:47 → 3SCARD 01-31 02:45
PROVIDERS: ADMIT Internal Medicine; ATTEND Internal Medicine
PROC: 027135Z Dilation of Coronary Artery, Two Arteries with Two Drug-eluting Intraluminal Devices, Percutaneous Approach (ICD-10-PCS; principal; 2020-01-28 08:55)
PROC: 4A023N7 Measurement of Cardiac Sampling and Pressure, Left Heart, Percutaneous Approach (ICD-10-PCS; 2020-01-28 08:55)
PROC: B2111ZZ Fluoroscopy of Multiple Coronary Arteries using Low Osmolar Contrast (ICD-10-PCS; 2020-01-28 08:55)
DX: I21.19 ST elevation (STEMI) myocardial infarction involving other coronary artery of inferior wall (principal); I25.10 Atherosclerotic heart disease of native coronary artery without angina pectoris; E78.5 Hyperlipidemia, unspecified; D72.829 Elevated white blood cell count, unspecified; I08.1 Rheumatic disorders of both mitral and tricuspid valves; G43.909 Migraine, unspecified, not intractable, without status migrainosus; F17.210 Nicotine dependence, cigarettes, uncomplicated; I25.84 Coronary atherosclerosis due to calcified coronary lesion; Z71.3 Dietary counseling and surveillance; Z71.6 Tobacco abuse counseling; Z87.442 Personal history of urinary calculi; Z88.5 Allergy status to narcotic agent; Z82.49 Family history of ischemic heart disease and other diseases of the circulatory system
CPT/HCPCS: 36415; 71045; 80048; 80053; 80061; 83735; 84484; 85025; 85610; 85730; 93005; 93306; 93458; 96374; 99291